=== PATIENT | female | born 1980 | race Caucasian/White ===

== ENCOUNTER 2020-05-01 15:10 | Emergency (ER) | payer BC ==
[2020-05-01] MEDS ORDERED: HYDROcodone/Acetaminophen 5/325 mg Tablet ONE (16:49)
[2020-05-01] MEDS ORDERED: Ibuprofen 800 MG TAB ONE (16:49)
--- NOTE | 2020-05-01 17:08 | RAD ---
Exam: XR Ankle Lt 3 View STANDARD HISTORY: Left ankle pain. COMPARISON: None FINDINGS: There is an obliquely oriented fracture involving the distal left fibula with mild separation of frac ture fragments. There also appears to be slight widening of the joint space between the medial malleolus and the talus suggesting ligamentous injury. No additional fracture or dislocation is seen. Subcutaneous soft tissue swelling is seen lateral and anteriorly with minimal soft tissue swelling seen just medial to the region of the talus. IMPRESSION: 1. Mild widening of the joint space between the talus and medial malleolus suggesting ligamentous inj ury. 2. Mildly obliquely oriented fracture distal left fibula. 3. Subcutaneous soft tissue swelling.
== END 2020-05-01 17:01 | disposition home or self-care (01) ==
LOC: MADERS 15:10 → EDBD 15:10 → MADERS 17:01
DX: S82.831A Other fracture of upper and lower end of right fibula, initial encounter for closed fracture (principal); S82.431A Displaced oblique fracture of shaft of right fibula, initial encounter for closed fracture; W18.09XA Striking against other object with subsequent fall, initial encounter